=== PATIENT | male | born 1955 | race Caucasian/White ===

== ENCOUNTER 2023-03-28 21:26 | Inpatient (IN) | payer OTHER, SELFPAY ==
[2023-03-28 21:00] VITALS: BP 138/94; PULSE 67; RESP 16; TEMP 36.4; O2SAT 96
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
[2023-03-29 06:00] VITALS: BP 128/69; PULSE 54; RESP 16; TEMP 36.8; O2SAT 98
[2023-03-29 08:09] LABS: MANUAL DIFF FLAG NO
--- NOTE | 2023-03-29 08:12 | HO.PSYADMNOT ---
HPI Chief Complaint: Bipolar I D/O Current Episode Depressed Etc Diagnostics Vital Signs (24Hr): Vital Signs - 24 hr 03/28/23 21:00 03/29/23 06:00 Temperature 97.5 F 98.3 F Pulse Rate 67 54 Respiratory Rate 16 16 Blood Pressure 138/94 H 128/69 Pulse Oximetry 96 98 Oxygen Delivery Method Room Air Room Air Labs 03/29/23 07:56 03/29/23 07:56 Meds/Allergies Allergies Allergies Allergy/AdvReac Type Severity Reaction Status Date / Time Gadolinium-Containing AdvReac Intermediate Unknown Verified 03/28/23 22:16 Contrast Medi Assessment & Plan Statement Statement: I have reviewed the history and physical and performed a pertinent examination on my patient. No changes have occurred unless specified. If the History and Physical was not performed prior to admission, the Hospitalist's service will be consulted for completing the admission physical. Time Spent With Patient Time: Total time managing care of this patient today ____ minutes.
[2023-03-29 08:13] LABS: Basophils Absolute Auto 0.1 X10*3/uL (0.0-0.2); Basophils Percent Auto 0.8 % (0-2); Eosinophils Absolute Auto 0.2 X10*3/uL (0.0-0.4); Eosinophils Percent Auto 2.5 % (0-4); Hematocrit 42.3 % (42.0-52.0); Hemoglobin 13.6 g/dl (14.0-18.0); Imm Gran Abs Auto 0.04 X10*3/uL (0.00-0.03); Imm Gran Pct Auto 0.6 % (0.0-0.4); Lymphocytes Absolute Auto 1.8 X10*3/uL (1.2-4.9); Lymphocytes Percent Auto 27.5 % (20-40); Mean Corpuscular HGB Conc 32.2 g/dl (31.0-36.0); Mean Corpuscular Hemoglobin 31.1 pg (27.0-33.0); Mean Corpuscular Volume 96.6 fL (80.0-98.0); Mean Platelet Volume 11.4 fL (9.4-12.4); Monocytes Percent Auto 15.4 % (2-11); Neutrophils Absolute Auto 3.5 x10*3/uL (2.0-8.3); Neutrophils Percent Auto 53.2 % (45-73); Platelet Count 233 X10*3/uL (160-400); Red Blood Count 4.38 X10*6/uL (4.60-5.80); Red Cell Distribution Width 13.4 % (11.0-16.0); White Blood Count 6.5 X10*3/uL (4.8-10.8)
[2023-03-29 08:40] VITALS: BP 114/59; PULSE 74; RESP 18; TEMP 36.8; O2SAT 95
[2023-03-29 08:55] LABS: Alanine Aminotransferase 128 U/L (0-40); Albumin Level 4.1 g/dL (3.5-5.0); Alkaline Phosphatase 74 U/L (39-117); Anion Gap 13 (12-20); Aspartate Amino Transferase 52 U/L (5-37); Bilirubin Direct 0.1 mg/dL (0.0-0.5); Bilirubin Total 0.3 mg/dL (0.0-1.0); Blood Urea Nitrogen 12 mg/dL (9-16); Calcium 9.3 mg/dL (8.4-10.2); Carbon Dioxide 25 mmol/L (22-29); Chloride 111 mmol/L (96-108); Cholesterol 209 mg/dL; Estimated Glomerular Filt Rate > 60; Glucose Fasting 100 mg/dL (60-99); HDL Cholesterol 59 mg/dL; LDL Cholesterol Calculated 132 mg/dl; Potassium 4.5 mmol/L (3.3-5.1); Sodium 144 mmol/L (135-145); Total Protein 6.9 g/dL (6.5-8.0); Triglycerides 92 mg/dL
[2023-03-29 09:01] LABS: Estimated Average Glucose 103 mg/dL; Hemoglobin A1c % 5.2 %
[2023-03-29] MEDS: lisinopriL 10 MG TABLET PO (09:01)
[2023-03-29 09:10] LABS: Thyroid Stimulating Hormone 6.45 uIU/mL (0.32-4.0)
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
[2023-03-29 09:24] LABS: Folate 15.2 ng/mL (> or = 4.0); Vitamin B12 350 pg/mL (200-900)
[2023-03-29 15:58] VITALS: BMI 37.1
--- NOTE | 2023-03-29 17:11 | HO.PM.IMCN ---
History of Present Illness Data of Consult Service Date: 03/29/23 Primary Care Provider: Nonstaff Physician HPI Reason for consult: Admission H&P Pt is a 68-year-old male with a PMH significant for HTN, HLD, hypothyroidism,?bipolar disorder, and alcohol use disorder with complex withdrawal (seizure, delirium tremens, Wernecke's encephalopathy) who is admitted to [facility] for increasing depression and suicidal statements in the setting of alcohol use and medication noncompliance. Medical consult for admission H&P. Patient notes that he has been experiencing some lower leg edema for the past week. He says this often happens when he is admitted to a hospital. Patient denies a history of CHF, is currently on hydrochlorothiazide. Patient otherwise has no acute medical complaints. Denies chest pain/pressure, palpitations. No shortness of breath. Denies fever, chills, nausea, vomiting, abdominal pain. Denies recent fatigue or weight gain. Patient admits to recent drinking with last drink 13 days ago. Labs reviewed, significant for transaminitis, TSH 6.45 Review of Systems Review of Systems: Lower leg edema x1 week Patient has no other acute medical complaints PMFSH Social History Currently Displaying Signs/Symptoms of Drug Intoxication Withdrawal: No Advance Directives: No Advance Directives Information Provided: No Do you have thoughts of harming others: None Do you have a plan to hurt others: No Plan service: No Sexual orientation: Straight/Heterosexual Meds Allergies Allergy/AdvReac Type Severity Reaction Status Date / Time Gadolinium-Containing AdvReac Intermediate Unknown Verified 03/28/23 22:16 Contrast Medi Active Medications: Current Medications Acetaminophen (Acetaminophen 325 Mg Tablet) 650 mg PO Q6H PRN PRN Reason: Headache/Pain Mild Scale (1-3) Al Hydroxide/Mg Hydroxide (Magnesium Hydrox/Alum Hydrox 30 Ml Oral.Susp) 30 ml PO Q6H PRN PRN Reason: Heartburn/Nausea Hydroxyzine HCl (Hydroxyzine Hcl 25 Mg Tablet) 25 mg PO Q6H PRN PRN Reason: Anxiety Lisinopril (Lisinopril 10 Mg Tablet) 10 mg PO DAILY [facility]; Protocol Last Admin: 03/29/23 09:01 Dose: 10 mg Magnesium Hydroxide (Milk Of Magnesia 30 Ml Oral.Susp) 30 ml PO DAILY PRN PRN Reason: Constipation Melatonin (Melatonin 3 Mg Tablet) 9 mg PO BEDTIME MATT Last Admin: 03/29/23 05:14 Dose: Not Given Risperidone (Risperidone 2 Mg Tablet) 2 mg PO BEDTIME MATT Last Admin: 03/29/23 02:30 Dose: Not Given Trazodone HCl (Trazodone Hcl 100 Mg Tablet) 100 mg PO BEDTIME MRX1 PRN PRN Reason: Insomnia Home Medications Medication Instructions Recorded Confirmed Last Taken Type hydrochlorothiazide 25 mg tablet 25 mg PO DAILY 03/29/23 03/29/23 Unknown History lamotrigine 100 mg tablet 100 mg PO BEDTIME 03/29/23 03/29/23 Unknown History lamotrigine 150 mg tablet 150 mg PO BEDTIME 03/29/23 03/29/23 Unknown History levothyroxine 150 mcg tablet 150 mcg PO DAILY 03/29/23 03/29/23 Unknown History (Levoxyl) lisinopril 10 mg tablet 10 mg PO DAILY 03/29/23 03/29/23 Unknown History lovastatin 40 mg tablet 40 mg PO DAILY 03/29/23 03/29/23 Unknown History omeprazole 40 mg capsule,delayed 40 mg PO BID 03/29/23 03/29/23 Unknown History release risperidone 2 mg tablet 2 mg PO BEDTIME 03/29/23 03/29/23 Unknown History topiramate 200 mg tablet 200 mg PO DAILY 03/29/23 03/29/23 Unknown History Physical Exam Vital Signs and Narrative: Vital Signs: Last Vital Signs Temp 98.2 F 03/29/23 08:40 Pulse 74 03/29/23 08:40 Resp 18 03/29/23 08:40 BP 114/59 L 03/29/23 08:40 Pulse Ox 95 03/29/23 08:40 O2 Del Method Room Air 03/29/23 08:40 BMI result Body Mass Index 37.1 Constitutional: Alert, in no acute distress. Mental Status: Oriented to person, place and time. Eyes: Pupils are equal, round, and reactive to light. Ear, Nose, and Throat: Oropharynx clear, mucous membranes moist. Ears and nose without deformities. Trachea midline. Respiratory: Clear to auscultation bilaterally. No wheezing, rales, or rhonchi. Cardiovascular: S1, S2 regular. No murmurs, rubs, or gallops. Gastrointestinal: Abdomen soft, non-tender, non-distended, obese. Normal bowel sounds. Neurologic: Cranial nerves II-XII are grossly intact bilaterally. No focal neurological deficits. Moves all extremities spontaneously. Skin: No rashes or lesions noted. Musculoskeletal: No cyanosis or clubbing. Extremities: 1+ pitting edema bilaterally. Psychiatric: Normal mood and affect. Results Labs 03/29/23 07:56 03/29/23 07:56 Labs: Laboratory Results - last 24 hr 03/29/23 03/29/23 03/29/23 07:56 07:56 07:56 MCV 96.6 MCH 31.1 MCHC 32.2 RDW 13.4 Plt Count 233 MPV 11.4 Immature Gran % (Auto) 0.6 H Neut % (Auto) 53.2 Lymph % (Auto) 27.5 [place] % (Auto) 15.4 H Eos % (Auto) 2.5 Baso % (Auto) 0.8 Lymph # (Auto) 1.8 [place] # (Auto) 1.0 Eos # (Auto) 0.2 Baso # (Auto) 0.1 Abs Immat Gran (auto) 0.04 H Absolute Neuts (auto) 3.5 Absolute Nucleated RBC 0.000 Nucleated RBC % (auto) 0.0 Anion Gap 13 Estim Creat Clear Calc TNP Estimated GFR > 60 Fasting Glucose 100 H Estimat Average Glucose 103 Hemoglobin A1c % 5.2 Calcium 9.3 Total Bilirubin 0.3 Direct Bilirubin 0.1 AST 52 H ALT 128 H Alkaline Phosphatase 74 Total Protein 6.9 Albumin 4.1 Triglycerides 92 Cholesterol 209 LDL Cholesterol, Calc 132 HDL Cholesterol 59 Vitamin B12 Folate TSH 6.45 H 03/29/23 07:56 MCV MCH MCHC RDW Plt Count MPV Immature Gran % (Auto) Neut % (Auto) Lymph % (Auto) [place] % (Auto) Eos % (Auto) Baso % (Auto) Lymph # (Auto) [place] # (Auto) Eos # (Auto) Baso # (Auto) Abs Immat Gran (auto) Absolute Neuts (auto) Absolute Nucleated RBC Nucleated RBC % (auto) Anion Gap Estim Creat Clear Calc Estimated GFR Fasting Glucose Estimat Average Glucose Hemoglobin A1c % Calcium Total Bilirubin Direct Bilirubin AST ALT Alkaline Phosphatase Total Protein Albumin Triglycerides Cholesterol LDL Cholesterol, Calc HDL Cholesterol Vitamin B12 350 Folate 15.2 TSH Assessment and Plan (1) Routine history and physical examination of adult: Status: Acute Plan Pt is a 68-year-old male with a PMH significant for HTN, HLD, hypothyroidism,?bipolar disorder, and alcohol use disorder with complex withdrawal (seizure, delirium tremens, Wernecke's encephalopathy) who is admitted to [facility] for increasing depression and suicidal statements in the setting of alcohol use and medication noncompliance. Medical consult for admission H&P. Mood disorder Plan as per Psychiatry Hypothyroidism Patient's TSH elevated at 6.45 at time of presentation Likely secondary to medication noncompliance Continue levothyroxine Will repeat labs in 3-4 days Transaminitis Likely secondary to use Patient's AST 52 and ALT 128, down from 61 and 139 on 03/18/2023 Patient asymptomatic, LFTs already trending down, no need for additional labs or follow-up Lower leg edema Likely secondary to medications, not CHF Continue hydrochlorothiazide, encourage ambulation HTN Continue home meds HLD Continue statin Thank you for allowing us to participate in the care of this patient. Signing off at this time. Please let us know if there are any acute complaints or questions. Time Spent With Patient Time: Total time managing care of this patient today ____ minutes.
[2023-03-29 18:00] VITALS: BP 116/63; PULSE 61; RESP 18; TEMP 36.3; O2SAT 97
[2023-03-29] MEDS: Levothyroxine Sodium 150 MCG TABLET PO (18:50)
[2023-03-29] MEDS: risperiDONE 2 MG TABLET PO (19:59)
[2023-03-29] MEDS: lamoTRIgine 25 MG TABLET 150 MG PO (19:59)
[2023-03-29] MEDS: Melatonin 3 MG TABLET 9 MG PO (20:00)
[2023-03-30 07:30] VITALS: BP 120/71; PULSE 84; RESP 15; TEMP 36.2; O2SAT 93
[2023-03-30] MEDS: lisinopriL 10 MG TABLET PO (08:25)
[2023-03-30] MEDS: hydroCHLOROthiazide 25 MG TABLET PO (08:25)
[2023-03-30] MEDS: Pravastatin Sodium 40 MG TABLET PO (08:25)
[2023-03-30] MEDS: Levothyroxine Sodium 150 MCG TABLET PO (08:25)
[2023-03-30] MEDS: Omeprazole 40 MG CAPSULE.DR PO ×2 (08:25→16:43)
[2023-03-30] MEDS: Topiramate 100 MG TABLET 200 MG PO (08:25)
[2023-03-30] MEDS: Escitalopram Oxalate 20 MG TABLET PO (08:25)
--- NOTE | 2023-03-30 14:29 | HO.PSYCHPN ---
Subjective Subjective Date of Service: 03/30/23 Reason For Visit: Bipolar I D/O Current Episode Depressed Etc Subjective Notes: Conditional Voluntary and 3 Day Interim History: The nursing staff reported patient has been pleasant and cooperative, he looks much better with a brighter affect. On interview the patient denies new symptoms he signed a 3 day notice and he knows that he is going home on Sunday. He states that he is safe no suicidal ideation. I offered Naltrexone but he refused. Mental Status Exam Mental Status Exam Patient Appearance: Well Grooomed and Appropriate Patient Orientation: Person and Situation Level of Consciousness: Awake and Appropriate Patient Behavior: Guarded and Passive Mood Description: Calm Affect Description: Constricted Patient Cognition Impaired: Yes Ability to Follow Directions: Good Speech Pattern: Clear Hallucinations: None Delusions: Not Present Thought Process: Distracted Thought Content: positive for [place] and positive for Poverty of Content Judgement: Fair Diagnostics Vital Signs (24Hr): Vital Signs - 24 hr 03/29/23 18:00 03/30/23 07:30 Temperature 97.4 F 97.1 F Pulse Rate 61 84 Respiratory Rate 18 15 Blood Pressure 116/63 120/71 Pulse Oximetry 97 93 Oxygen Delivery Method Room Air Room Air BMI result Body Mass Index 37.1 Labs 03/29/23 07:56 03/29/23 07:56 Labs: Laboratory Results - last 48 hr 03/29/23 03/29/23 03/29/23 07:56 07:56 07:56 WBC 6.5 RBC 4.38 L Hgb 13.6 L Hct 42.3 MCV 96.6 MCH 31.1 MCHC 32.2 RDW 13.4 Plt Count 233 MPV 11.4 Immature Gran % (Auto) 0.6 H Neut % (Auto) 53.2 Lymph % (Auto) 27.5 [place] % (Auto) 15.4 H Eos % (Auto) 2.5 Baso % (Auto) 0.8 Lymph # (Auto) 1.8 [place] # (Auto) 1.0 Eos # (Auto) 0.2 Baso # (Auto) 0.1 Abs Immat Gran (auto) 0.04 H Absolute Neuts (auto) 3.5 Absolute Nucleated RBC 0.000 Nucleated RBC % (auto) 0.0 Sodium 144 Potassium 4.5 Chloride 111 H Carbon Dioxide 25 Anion Gap 13 BUN 12 Creatinine 0.86 Estim Creat Clear Calc TNP Estimated GFR > 60 Fasting Glucose 100 H Estimat Average Glucose 103 Hemoglobin A1c % 5.2 Calcium 9.3 Total Bilirubin 0.3 Direct Bilirubin 0.1 AST 52 H ALT 128 H Alkaline Phosphatase 74 Total Protein 6.9 Albumin 4.1 Triglycerides 92 Cholesterol 209 LDL Cholesterol, Calc 132 HDL Cholesterol 59 Vitamin B12 Folate TSH 6.45 H 03/29/23 07:56 WBC RBC Hgb Hct MCV MCH MCHC RDW Plt Count MPV Immature Gran % (Auto) Neut % (Auto) Lymph % (Auto) [place] % (Auto) Eos % (Auto) Baso % (Auto) Lymph # (Auto) [place] # (Auto) Eos # (Auto) Baso # (Auto) Abs Immat Gran (auto) Absolute Neuts (auto) Absolute Nucleated RBC Nucleated RBC % (auto) Sodium Potassium Chloride Carbon Dioxide Anion Gap BUN Creatinine Estim Creat Clear Calc Estimated GFR Fasting Glucose Estimat Average Glucose Hemoglobin A1c % Calcium Total Bilirubin Direct Bilirubin AST ALT Alkaline Phosphatase Total Protein Albumin Triglycerides Cholesterol LDL Cholesterol, Calc HDL Cholesterol Vitamin B12 350 Folate 15.2 TSH Medications Medications Current Medications Acetaminophen (Acetaminophen 325 Mg Tablet) 650 mg PO Q6H PRN PRN Reason: Headache/Pain Mild Scale (1-3) Al Hydroxide/Mg Hydroxide (Magnesium Hydrox/Alum Hydrox 30 Ml Oral.Susp) 30 ml PO Q6H PRN PRN Reason: Heartburn/Nausea Escitalopram Oxalate (Escitalopram Oxalate 20 Mg Tablet) 20 mg PO DAILY [facility] Last Admin: 03/30/23 08:25 Dose: 20 mg Hydrochlorothiazide (Hydrochlorothiazide 25 Mg Tablet) 25 mg PO DAILY [facility]; Protocol Last Admin: 03/30/23 08:25 Dose: 25 mg Hydroxyzine HCl (Hydroxyzine Hcl 25 Mg Tablet) 25 mg PO Q6H PRN PRN Reason: Anxiety Lamotrigine (Lamotrigine 25 Mg Tablet) 150 mg PO BEDTIME [facility] Last Admin: 03/29/23 19:59 Dose: 150 mg Levothyroxine Sodium (Levothyroxine Sodium 75 Mcg Tablet) 225 mcg PO Gutierrez@0600 [facility] Levothyroxine Sodium (Levothyroxine Sodium 150 Mcg Tablet) 150 mcg PO MoTuWeThFrSa@0600 [facility] Last Admin: 03/30/23 08:25 Dose: 150 mcg Lisinopril (Lisinopril 10 Mg Tablet) 10 mg PO DAILY [facility]; Protocol Last Admin: 03/30/23 08:25 Dose: 10 mg Magnesium Hydroxide (Milk Of Magnesia 30 Ml Oral.Susp) 30 ml PO DAILY PRN PRN Reason: Constipation Melatonin (Melatonin 3 Mg Tablet) 9 mg PO BEDTIME [facility] Last Admin: 03/29/23 20:00 Dose: 9 mg Omeprazole (Omeprazole 40 Mg Capsule.) 40 mg PO BID@0630,1630 [facility] Last Admin: 03/30/23 08:25 Dose: 40 mg Pravastatin Sodium (Pravastatin Sodium 40 Mg Tablet) 40 mg PO DAILY [facility] Last Admin: 03/30/23 08:25 Dose: 40 mg Risperidone (Risperidone 2 Mg Tablet) 2 mg PO BEDTIME [facility] Last Admin: 03/29/23 19:59 Dose: 2 mg Topiramate (Topiramate 100 Mg Tablet) 200 mg PO DAILY [facility] Last Admin: 03/30/23 08:25 Dose: 200 mg Trazodone HCl (Trazodone Hcl 100 Mg Tablet) 100 mg PO BEDTIME PRN PRN Reason: Insomnia Allergies Allergies Allergy/AdvReac Type Severity Reaction Status Date / Time Gadolinium-Containing AdvReac Intermediate Unknown Verified 03/28/23 22:16 Contrast Medi Assessment & Plan Assessment & Plan (1) Bipolar 1 disorder, depressed, moderate: Status: Acute Code(s): F31.32 - Bipolar disorder, current episode depressed, moderate (2) Alcohol use disorder, severe, dependence: Status: Acute Code(s): F10.20 - Alcohol dependence, uncomplicated Plan Mr. Soares is a 68 year-old male with hx of alcohol use disorder, bipolar disorder who was brought to [facility] by sister given increase alcohol use disorder and suicidal statement. Pt admitted medically for tx of alcohol withdrawal given hx of Wernicke's encephalophathy. On the unit, pt has denied suicidal ideation. We discussed risks, benefits and alternative treatment options, pt agrees to continue medication he has been prescribed by long standing psychiatrist, Dr. Patricia Briones. [place] completed on 03/29 scored 26/30, and shows mild cognitive deficit, not suggestive of Korsokoff or significant progression of cognitive decline. PLAN 1. Admit to S1, CV, 15 mins checks, 3 day 2. continue current medications 3. Obtain collateral information 4. Aftercare planning. Reason for continued inpatient stay Substantial Risk for: inability to function, rapid decompensation and med/psych decompensation Time Spent With Patient Time: Total time managing care of this patient today __20__ minutes.
[2023-03-30 19:45] VITALS: BP 149/73; PULSE 62; RESP 18; TEMP 36.1; O2SAT 97
[2023-03-30] MEDS: Melatonin 3 MG TABLET 9 MG PO (20:22)
[2023-03-30] MEDS: lamoTRIgine 25 MG TABLET 150 MG PO (20:22)
[2023-03-30] MEDS: risperiDONE 2 MG TABLET PO (20:22)
[2023-03-31] MEDS: Levothyroxine Sodium 150 MCG TABLET PO (05:35)
[2023-03-31] MEDS: Omeprazole 40 MG CAPSULE.DR PO ×2 (05:35→16:33)
[2023-03-31 06:00] VITALS: BP 137/72; PULSE 63; RESP 18; TEMP 36.2; O2SAT 96
[2023-03-31] MEDS: Topiramate 100 MG TABLET 200 MG PO (08:36)
[2023-03-31] MEDS: Escitalopram Oxalate 20 MG TABLET PO (08:36)
[2023-03-31] MEDS: Pravastatin Sodium 40 MG TABLET PO (08:36)
[2023-03-31] MEDS: lisinopriL 10 MG TABLET PO (08:36)
[2023-03-31] MEDS: hydroCHLOROthiazide 25 MG TABLET PO (08:36)
--- NOTE | 2023-03-31 12:42 | HO.PSYCHPN ---
Subjective Subjective Date of Service: 03/31/23 Reason For Visit: Bipolar I D/O Current Episode Depressed Etc Interim History: met with patient; discussed with team pt reports he's wonderful and that he's looking forward to discharge; he denies any SI or depression; says he is copacetic and has no complaints or requests. Plans to dc sunday Mental Status Exam Mental Status Exam Patient Appearance: Well Grooomed and Appropriate Patient Orientation: Person and Situation Level of Consciousness: Awake and Appropriate Patient Behavior: Appropriate and Cooperative Mood Description: Calm Affect Description: Calm and Appropriate Patient Cognition Impaired: Yes Ability to Follow Directions: Good Speech Pattern: Clear Hallucinations: None Delusions: Not Present Thought Process: Goal Oriented Thought Content: positive for Intact (No SI/HI) and positive for [place] Judgement: Fair Diagnostics Vital Signs (24Hr): Vital Signs - 24 hr 03/30/23 19:45 Temperature 97.0 F Pulse Rate 62 Respiratory Rate 18 Blood Pressure 149/73 H Pulse Oximetry 97 Oxygen Delivery Method Room Air BMI result Body Mass Index 37.1 Labs 03/29/23 07:56 03/29/23 07:56 Medications Medications Current Medications Acetaminophen (Acetaminophen 325 Mg Tablet) 650 mg PO Q6H PRN PRN Reason: Headache/Pain Mild Scale (1-3) Al Hydroxide/Mg Hydroxide (Magnesium Hydrox/Alum Hydrox 30 Ml Oral.Susp) 30 ml PO Q6H PRN PRN Reason: Heartburn/Nausea Escitalopram Oxalate (Escitalopram Oxalate 20 Mg Tablet) 20 mg PO DAILY [facility] Last Admin: 03/31/23 08:36 Dose: 20 mg Hydrochlorothiazide (Hydrochlorothiazide 25 Mg Tablet) 25 mg PO DAILY [facility]; Protocol Last Admin: 03/31/23 08:36 Dose: 25 mg Hydroxyzine HCl (Hydroxyzine Hcl 25 Mg Tablet) 25 mg PO Q6H PRN PRN Reason: Anxiety Lamotrigine (Lamotrigine 25 Mg Tablet) 150 mg PO BEDTIME [facility] Last Admin: 03/30/23 20:22 Dose: 150 mg Levothyroxine Sodium (Levothyroxine Sodium 75 Mcg Tablet) 225 mcg PO Gutierrez@0600 [facility] Levothyroxine Sodium (Levothyroxine Sodium 150 Mcg Tablet) 150 mcg PO MoTuWeThFrSa@0600 [facility] Last Admin: 03/31/23 05:35 Dose: 150 mcg Lisinopril (Lisinopril 10 Mg Tablet) 10 mg PO DAILY [facility]; Protocol Last Admin: 03/31/23 08:36 Dose: 10 mg Magnesium Hydroxide (Milk Of Magnesia 30 Ml Oral.Susp) 30 ml PO DAILY PRN PRN Reason: Constipation Melatonin (Melatonin 3 Mg Tablet) 9 mg PO BEDTIME [facility] Last Admin: 03/30/23 20:22 Dose: 9 mg Omeprazole (Omeprazole 40 Mg Capsule.Dr) 40 mg PO BID@0630,1630 [facility] Last Admin: 03/31/23 05:35 Dose: 40 mg Pravastatin Sodium (Pravastatin Sodium 40 Mg Tablet) 40 mg PO DAILY [facility] Last Admin: 03/31/23 08:36 Dose: 40 mg Risperidone (Risperidone 2 Mg Tablet) 2 mg PO BEDTIME [facility] Last Admin: 03/30/23 20:22 Dose: 2 mg Topiramate (Topiramate 100 Mg Tablet) 200 mg PO DAILY [facility] Last Admin: 03/31/23 08:36 Dose: 200 mg Trazodone HCl (Trazodone Hcl 100 Mg Tablet) 100 mg PO BEDTIME PRN PRN Reason: Insomnia Allergies Allergies Allergy/AdvReac Type Severity Reaction Status Date / Time Gadolinium-Containing AdvReac Intermediate Unknown Verified 03/28/23 22:16 Contrast Medi Assessment & Plan Assessment & Plan (1) Bipolar 1 disorder, depressed, moderate: Status: Acute Code(s): F31.32 - Bipolar disorder, current episode depressed, moderate (2) Alcohol use disorder, severe, dependence: Status: Acute Code(s): F10.20 - Alcohol dependence, uncomplicated Plan Mr. Soares is a 68 year-old male with hx of alcohol use disorder, bipolar disorder who was brought to [facility] by sister given increase alcohol use disorder and suicidal statement. Pt admitted medically for tx of alcohol withdrawal given hx of Wernicke's encephalophathy. On the unit, pt has denied suicidal ideation. We discussed risks, benefits and alternative treatment options, pt agrees to continue medication he has been prescribed by long standing psychiatrist, Dr. Patricia Briones. Dixon completed on 03/29 scored 26/30, and shows mild cognitive deficit, not suggestive of Korsokoff or significant progression of cognitive decline. 03/31 remains in good behavioral/impulse control; denies depression/SI; plans to dc; no complaints and no requests PLAN 1. Admit to S1, CV, 15 mins checks, 3 day 2. continue current medications 3. Obtain collateral information 4. Aftercare planning. Patient educated on: diagnosis Informed Consent: understands Reason for continued inpatient stay Substantial Risk for: stable for discharge Time Spent With Patient Time: Total time managing care of this patient today ____ minutes.
[2023-03-31 19:30] VITALS: BP 115/66; PULSE 62; RESP 18; TEMP 36.3; O2SAT 98
[2023-03-31] MEDS: risperiDONE 2 MG TABLET PO (20:29)
[2023-03-31] MEDS: Melatonin 3 MG TABLET 9 MG PO (20:29)
[2023-03-31] MEDS: lamoTRIgine 25 MG TABLET 150 MG PO (20:29)
[2023-04-01] MEDS: Levothyroxine Sodium 75 MCG TABLET 225 MCG PO (05:52)
[2023-04-01] MEDS: Omeprazole 40 MG CAPSULE.DR PO ×2 (05:52→16:28)
[2023-04-01 07:30] VITALS: BP 116/67; PULSE 79; RESP 16; TEMP 36.3; O2SAT 95
[2023-04-01] MEDS: Escitalopram Oxalate 20 MG TABLET PO (09:07)
[2023-04-01] MEDS: lisinopriL 10 MG TABLET PO (09:07)
[2023-04-01] MEDS: hydroCHLOROthiazide 25 MG TABLET PO (09:07)
[2023-04-01] MEDS: Topiramate 100 MG TABLET 200 MG PO (09:07)
[2023-04-01] MEDS: Pravastatin Sodium 40 MG TABLET PO (09:07)
--- NOTE | 2023-04-01 12:13 | P.PNPSI_ITS ---
Subjective Subjective Date of Service: 04/01/23 Reason For Visit: Bipolar I D/O Current Episode Depressed Etc Interim History: Briefly met with patient; discussed with team Patient remains stable, good mood, no complaints and no requests. He is hoping and expecting to discharge tomorrow Monday 04/02 Mental Status Exam Mental Status Exam Patient Appearance: Well Grooomed and Appropriate Patient Orientation: Person and Situation Level of Consciousness: Awake and Appropriate Patient Behavior: Appropriate and Cooperative Mood Description: Calm Affect Description: Calm and Appropriate Patient Cognition Impaired: Yes Ability to Follow Directions: Good Speech Pattern: Clear Hallucinations: None Delusions: Not Present Thought Process: Goal Oriented Thought Content: positive for Intact (No SI/HI) and positive for [place] Judgement: Fair Diagnostics Vital Signs (24Hr): Vital Signs - 24 hr 03/31/23 19:30 04/01/23 07:30 Temperature 97.4 F 97.3 F Pulse Rate 62 79 Respiratory Rate 18 16 Blood Pressure 115/66 116/67 Pulse Oximetry 98 95 Oxygen Delivery Method Room Air Room Air BMI result Body Mass Index 37.1 Labs 03/29/23 07:56 03/29/23 07:56 Medications Medications Current Medications Acetaminophen (Acetaminophen 325 Mg Tablet) 650 mg PO Q6H PRN PRN Reason: Headache/Pain Mild Scale (1-3) Al Hydroxide/Mg Hydroxide (Magnesium Hydrox/Alum Hydrox 30 Ml Oral.Susp) 30 ml PO Q6H PRN PRN Reason: Heartburn/Nausea Escitalopram Oxalate (Escitalopram Oxalate 20 Mg Tablet) 20 mg PO DAILY [facility] Last Admin: 04/01/23 09:07 Dose: 20 mg Hydrochlorothiazide (Hydrochlorothiazide 25 Mg Tablet) 25 mg PO DAILY [facility]; Protocol Last Admin: 04/01/23 09:07 Dose: 25 mg Hydroxyzine HCl (Hydroxyzine Hcl 25 Mg Tablet) 25 mg PO Q6H PRN PRN Reason: Anxiety Lamotrigine (Lamotrigine 25 Mg Tablet) 150 mg PO BEDTIME [facility] Last Admin: 03/31/23 20:29 Dose: 150 mg Levothyroxine Sodium (Levothyroxine Sodium 75 Mcg Tablet) 225 mcg PO Gutierrez@0600 [facility] Last Admin: 04/01/23 05:52 Dose: 225 mcg Levothyroxine Sodium (Levothyroxine Sodium 150 Mcg Tablet) 150 mcg PO MoTuWeThFrSa@0600 [facility] Last Admin: 03/31/23 05:35 Dose: 150 mcg Lisinopril (Lisinopril 10 Mg Tablet) 10 mg PO DAILY [facility]; Protocol Last Admin: 04/01/23 09:07 Dose: 10 mg Magnesium Hydroxide (Milk Of Magnesia 30 Ml Oral.Susp) 30 ml PO DAILY PRN PRN Reason: Constipation Melatonin (Melatonin 3 Mg Tablet) 9 mg PO BEDTIME [facility] Last Admin: 03/31/23 20:29 Dose: 9 mg Omeprazole (Omeprazole 40 Mg Capsule.) 40 mg PO BID@0630,1630 [facility] Last Admin: 04/01/23 05:52 Dose: 40 mg Pravastatin Sodium (Pravastatin Sodium 40 Mg Tablet) 40 mg PO DAILY [facility] Last Admin: 04/01/23 09:07 Dose: 40 mg Risperidone (Risperidone 2 Mg Tablet) 2 mg PO BEDTIME [facility] Last Admin: 03/31/23 20:29 Dose: 2 mg Topiramate (Topiramate 100 Mg Tablet) 200 mg PO DAILY [facility] Last Admin: 04/01/23 09:07 Dose: 200 mg Trazodone HCl (Trazodone Hcl 100 Mg Tablet) 100 mg PO BEDTIME PRN PRN Reason: Insomnia Allergies Allergies Allergy/AdvReac Type Severity Reaction Status Date / Time Gadolinium-Containing AdvReac Intermediate Unknown Verified 03/28/23 22:16 Contrast Medi Assessment & Plan Assessment & Plan (1) Bipolar 1 disorder, depressed, moderate: Status: Acute Code(s): F31.32 - Bipolar disorder, current episode depressed, moderate (2) Alcohol use disorder, severe, dependence: Status: Acute Code(s): F10.20 - Alcohol dependence, uncomplicated Plan Mr. Soares is a 68 year-old male with hx of alcohol use disorder, bipolar disorder who was brought to [facility] by sister given increase alcohol use disorder and suicidal statement. Pt admitted medically for tx of alcohol withdrawal given hx of Wernicke's encephalophathy. On the unit, pt has denied suicidal ideation. We discussed risks, benefits and alternative treatment options, pt agrees to continue medication he has been prescribed by long standing psychiatrist, Dr. Patricia Briones. Hayes completed on 03/29 scored 26/30, and shows mild cognitive deficit, not suggestive of Korsokoff or significant progression of cognitive decline. 03/31 remains in good behavioral/impulse control; denies depression/SI; plans to dc; no complaints and no requests 04/01 remains in good mood, no complaints or requests; hoping for discharge marcus jason PLAN 1. Admit to S1, CV, 15 mins checks, 3 day 2. continue current medications 3. Obtain collateral information 4. Aftercare planning. Patient educated on: diagnosis Informed Consent: understands Reason for continued inpatient stay Substantial Risk for: stable for discharge Time Spent With Patient Time: Total time managing care of this patient today ____ minutes.
[2023-04-01 19:30] VITALS: BP 117/63; PULSE 71; RESP 16; TEMP 36.2; O2SAT 96
[2023-04-01] MEDS: lamoTRIgine 25 MG TABLET 150 MG PO (21:08)
[2023-04-01] MEDS: risperiDONE 2 MG TABLET PO (21:08)
[2023-04-01] MEDS: Melatonin 3 MG TABLET 9 MG PO (21:08)
[2023-04-02] MEDS: Levothyroxine Sodium 150 MCG TABLET PO (06:48)
[2023-04-02] MEDS: Omeprazole 40 MG CAPSULE.DR PO (06:48)
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
[2023-04-02 09:45] VITALS: BP 142/67; PULSE 65; RESP 16; TEMP 36.4; O2SAT 97
[2023-04-02] MEDS: lisinopriL 10 MG TABLET PO (10:37)
[2023-04-02] MEDS: Escitalopram Oxalate 20 MG TABLET PO (10:37)
[2023-04-02] MEDS: Topiramate 100 MG TABLET 200 MG PO (10:37)
[2023-04-02] MEDS: hydroCHLOROthiazide 25 MG TABLET PO (10:37)
[2023-04-02] MEDS: Pravastatin Sodium 40 MG TABLET PO (10:37)
== END 2023-04-02 11:15 | disposition home or self-care (01) | DRG 885 ==
PROVIDERS: Social Worker; Admitting Provider Psychiatry & Neurology Psychiatry; Visit Provider Psychiatry & Neurology Psychiatry
DX: F31.32 Bipolar disorder, current episode depressed, moderate (principal); E03.9 Hypothyroidism, unspecified; I10 Essential (primary) hypertension; F10.20 Alcohol dependence, uncomplicated; E78.5 Hyperlipidemia, unspecified; Z91.148 Patient's other noncompliance with medication regimen for other reason; Z91.041 Radiographic dye allergy status; Z91.51 Personal history of suicidal behavior; Z79.890 Hormone replacement therapy; Z79.899 Other long term (current) drug therapy
CPT/HCPCS: 36415; 80053; 80061; 80076; 82607; 82746; 83036; 84443; 85025